=== PATIENT | male | born 1975 | race Two or more races ===

== ENCOUNTER → 2021-02-07 | Emergency (ER) | payer OTHER ==
[~2021-02-07] VITALS: Ht 193 cm; Wt 113.4 kg
[~2021-02-07] MED LIST: CYCL5TAB PO; CYCLOBENZAPRINE 10 MG TABLET ONE; CYCLOBENZAPRINE 10 MG TABLET PO ONE
--- NOTE | 2021-02-07 18:22 | NUR ---
PT [email or web address] FROM HOME, c/o R rib/flank/back area 10/10 ps, fentanyl 100mcg/toradol 15mg given on scene. PT A/OX4. TOLERATING R/A WELL. SKIN INTACT.
--- NOTE | 2021-02-07 18:38 | NUR ---
SEEN AND EXMAINED BY .
--- NOTE | 2021-02-07 18:42 | NUR ---
PT IS WHEELED TO RADIOLOGY FOR XRAY.
--- NOTE | 2021-02-07 20:26 | NUR ---
Patient discharged to home in stable condition. Written and verbal after care instructions given. Patient verbalizes understanding of instruction.
[2021-02-07 20:28] VITALS: BP 138/82
--- NOTE | 2021-02-07 20:29 | NUR ---
Patient discharged to home in stable condition. RX,Written and verbal after care instructions given. Patient verbalizes understanding of instruction. IV removed. Catheter intact and site benign. Pressure and 4x4 applied to site. No bleeding noted.
== END | disposition home or self-care (01) ==
LOC: ER 18:22
DX: S39.012A Strain of muscle, fascia and tendon of lower back, initial encounter (principal); S29.012A Strain of muscle and tendon of back wall of thorax, initial encounter; X58.XXXA Exposure to other specified factors, initial encounter; Y93.89 Activity, other specified; Y92.89 Other specified places as the place of occurrence of the external cause; Y99.8 Other external cause status
CPT/HCPCS: 71100-TC